=== PATIENT | female | born 2000 | race Caucasian/White ===

== ENCOUNTER → 2018-04-30 | Outpatient (CLI) | payer OTHER ==
[2018-04-30 18:02] LABS: BASO % 0.5 % (0.0-1.0); EOS # 0.5 10^3/uL (0.0-0.50); EOS % 5.8 % (0.0-3.0); HEMATOCRIT 34.5 % (36.0-47.0); HEMOGLOBIN 10.9 g/dl (12.0-15.5); IMMATURE GRANULOCYTE % 0.2 % (0-3.0); LYMPH # 1.6 10^3/uL (1.5-6.5); LYMPH % 18.7 % (24.0-44.0); MEAN CORPUSCULAR HGB CONC 31.6 g/dl (32.0-36.5); MEAN CORPUSCULAR VOLUME 63.3 fl (80.0-96.0); MONO # 0.6 10^3/uL (0.0-0.8); MONO % 6.6 % (0.0-5.0); NEUTROPHILS # 5.7 10^3/uL (1.8-7.7); NEUTROPHILS % 68.2 % (36.0-66.0); PLATELET COUNT, AUTOMATED 343 10^3/uL (150-450); RED BLOOD COUNT 5.45 10^6/uL (4.00-5.40); RED CELL DISTRIBUTION WIDTH 14.9 % (11.5-14.5); WHITE BLOOD COUNT 8.4 10^3/uL (4.0-10.0)
[2018-04-30 20:52] LABS: CHLAMYDIA DNA AMPLIFICATION NEGATIVE (NEGATIVE); GC DNA AMPLIFICATION NEGATIVE (NEGATIVE)
[2018-05-01 12:45] LABS: HBsAg Prenatal NEGATIVE (NEGATIVE); HIV 1&2 SCREEN CENTAUR NEGATIVE (NEGATIVE); RUBELLA IgG QUALITATIVE IMMUNE (IMMUNE)
[2018-05-01 12:45] LABS: HEPATITIS C VIRUS ABY INDEX 0.1 INDEX (<0.8)
== END ==
LOC: M SMT 14:29
DX: Z36.89 Encounter for other specified antenatal screening (principal)
CPT/HCPCS: 86762

== ENCOUNTER → 2018-05-27 | Outpatient (REF) | payer OTHER | LOC: M LAB REF 16:58 | PROVIDERS: ATTEND Obstetrics & Gynecology | DX: Z34.01 Encounter for supervision of normal first pregnancy, first trimester (principal); Z3A.00 Weeks of gestation of pregnancy not specified ==

== ENCOUNTER → 2018-06-26 | Outpatient (CLI) | payer OTHER ==
--- NOTE | 2018-06-26 12:50 | REP ---
OB ULTRASOUND: Real-time sonographic evaluation of the gravid uterus was performed. There is a single living intrauterine gestation. Estimated gestational age is 18 weeks 4 days based on today's ultrasound measurements, EDC 11/23/2018. Biometry and Growth: BPD 43 mm = 19 weeks 0 days HC 156 mm = 18 weeks 3 days AC 132 mm = 18 weeks 5 days FL 29 mm = 18 weeks 5 days HC/AC ratio 1.17 within normal range. Estimated weight 254 grams at the 50th percentile. SEEN/GROSSLY UNREMARKABLE Lateral ventricles Yes Posterior fossa Yes Upper lip Yes Four-chamber heart Echogenic focus in the left ventricle likely related to chordae tendineae LVOT No RVOT No Stomach Yes Cord insertion Yes Three vessel cord Yes Kidneys Yes Bladder Yes Spine No Cervical length: Closed and measures 5.3 cm in length. heart rate: 163 beats per minute. position: Breech Placenta: Anterior and grade 1 with no previa or abruption. Amniotic fluid: Within normal limits. Electronically Signed by Gab Harper MD 06/26/2018 01:44 P
== END ==
LOC: M SMT 09:51
PROVIDERS: ATTEND Obstetrics & Gynecology
DX: Z34.82 Encounter for supervision of other normal pregnancy, second trimester (principal); Z3A.18 18 weeks gestation of pregnancy

== ENCOUNTER → 2018-07-22 | Outpatient (CLI) | payer OTHER | LOC: M SMT 14:58 | PROVIDERS: ATTEND Obstetrics & Gynecology | DX: Z36.89 Encounter for other specified antenatal screening (principal) ==

== ENCOUNTER → 2018-08-14 | Outpatient (CLI) | payer OTHER ==
--- NOTE | 2018-08-14 12:22 | REP ---
Obstetric sonography: History: Supervision of for anatomy. Follow-up outflow tract views and spine. Findings: Scanning through the gravid uterus demonstrates a viable single intrauterine gestation in a breech lie. motion is observed and heart rate is recorded at 150 beats per minute. An anterior grade 1 placenta is seen without evidence of previa or abruption. Amniotic fluid is subjectively normal. Closed cervical length measures 5.6 cm, viewed transabdominally. No extrauterine abnormality is observed. There has been appropriate interval growth. No anomaly is seen. There is an echogenic focus in the left ventricle, likely chordae tendineae. The following anatomic structures are identified and felt to be sonographically unremarkable: cranium, choroid plexus, cavum, cerebellum and posterior fossa, lungs, four-chamber heart with left and right ventricular outflow tract views, diaphragm, left-sided stomach, abdominal wall cord insertion, three-vessel cord, kidneys and bladder, spine, upper and lower extremities. Biometry chart: BPD 6.4 cm 25 weeks 5 days Head circumference 23.9 cm 26 weeks 0 days Abdominal circumference 21.2 cm 25 weeks 5 days Femur length 4.7 cm 25 weeks 5 days Humeral length 4.4 cm 26 weeks 0 days Cerebellar diameter 2.9 cm 25 weeks 2 days HC/AC ratio normal 1.13. Cephalic index normal 0.73. Estimated weight 848 grams, 1 pound 13 ounces, 46 percentile for 25 weeks 4 days. Impression: Viable single intrauterine gestation at 25 weeks 3 days by today's composite criteria. Expected gestational age estimate based on prior sonography is 25 weeks 4 days. BILL by prior sonography November 23, 2018. Appropriate interval growth. Echogenic focus seen in the left ventricle. Otherwise, and in combination with the prior study, anatomic survey is felt to be complete. Electronically Signed by Jeremy Wooten MD 08/14/2018 02:37 P
== END ==
LOC: M SMT 09:43
PROVIDERS: ATTEND Advanced Practice Midwife
DX: Z36.3 Encounter for antenatal screening for malformations (principal); Z3A.25 25 weeks gestation of pregnancy

== ENCOUNTER 2018-10-04 12:50 | Outpatient (CLI) | payer OTHER ==
[~2018-10-04] VITALS: Ht 170.2 cm; Wt 92.6 kg
[2018-10-04 13:04] VITALS: BP 129/70
[2018-10-04] MEDS ORDERED: PRENTAB9 PO (13:16)
== END 2018-10-04 13:42 | disposition home or self-care (01) ==
LOC: M LDO 12:50
PROVIDERS: ATTEND Specialist
DX: O47.03 False labor before 37 completed weeks of gestation, third trimester (principal); Z3A.32 32 weeks gestation of pregnancy

== ENCOUNTER → 2018-11-03 | Outpatient (REF) | payer OTHER ==
[~2018-11-03] MED LIST: PRENTAB9 PO
== END ==
LOC: M LAB REF 17:47
PROVIDERS: ATTEND Specialist
DX: Z34.83 Encounter for supervision of other normal pregnancy, third trimester (principal); Z3A.36 36 weeks gestation of pregnancy

== ENCOUNTER 2018-11-30 18:09 | Inpatient (IN) | payer OTHER ==
[~2018-11-30] VITALS: Ht 170.2 cm; Wt 100.4 kg
[2018-11-30 18:24] VITALS: BP 134/68
[2018-11-30 18:55] VITALS: BP 131/69
[2018-11-30 20:02] VITALS: BP 118/59
[2018-11-30 22:48] LABS: HEMATOCRIT 30.6 % (36.0-47.0); HEMOGLOBIN 9.8 g/dl (12.0-15.5); MEAN CORPUSCULAR HEMOGLOBIN 21.9 pg (27.0-33.0); MEAN CORPUSCULAR VOLUME 68.3 fl (80.0-96.0); PLATELET COUNT, AUTOMATED 240 10^3/uL (150-450); RED BLOOD COUNT 4.48 10^6/uL (4.00-5.40); WHITE BLOOD COUNT 9.3 10^3/uL (4.0-10.0)
[2018-11-30 23:27] VITALS: BP 108/59
[2018-11-30] MEDS ORDERED: LR 1,000 ML IV SCH (23:33)
[2018-11-30] MEDS ORDERED: OXYTOCIN DRIP 30 UNITS in APPROPRIATE DILUENT 1 EA IV SCH (23:45)
[2018-12-01] VITALS (43 sets, daily range): BP systolic 93–162; BP diastolic 51–98
--- NOTE | 2018-12-01 06:06 | HPE ---
DATE OF ADMISSION: 11/30/2018 HISTORY OF PRESENT ILLNESS (HPI): The patient is a 18-year-old female who is 1, para 0 at 40 weeks-3 days gestation with an estimated date of confinement (EDC) of 11/27/2018 based on her last menstrual period (LMP) and consistent with her first trimester ultrasound. She initiated care in her first trimester with [facility]. Her has been complicated by anemia, bipolar. She presents to labor and delivery today with complaints of contractions every four minutes for the last four hours. She reports active movement. She denies vaginal bleeding or leaking of fluid. ALLERGIES: OXYCODONE. CURRENT MEDICATIONS: - vitamins LABS: Blood type A+, her antibody screen is negative. Hemoglobin and hematocrit in the first trimester were 10.9 and 34.5, platelets 343. She was immune to Rubella, nonreactive to VDRL. She had a positive urine culture with Escherichia (E) coli in the first trimester and was treated and negative culture on 05/27/2018. HIV is negative. Hepatitis B surface antigen is negative. HEP C is nonreactive. Gonorrhea and chlamydia are both negative. She declined the genetic testing. Cystic fibrosis, she is not a carried. GBS is negative. The patient did not do her one hour Glucola test. PAST MEDICAL HISTORY: Bipolar. PAST SURGICAL HISTORY: Tonsillectomy. FAMILY HISTORY: Diabetes, depression, stroke, psychiatric disorders. SOCIAL HISTORY: The patient has a history of being a cigarette smoker prior to . She reports she is no longer a smoker. 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 She denies using any alcohol currently. The patient denies any history of illicit recreational drug use now or prior to . PHYSICAL EXAMINATION: VITAL SIGNS: Blood pressure 118/59, heart rate 55, respiratory rate 18, temperature 97.9. heart rate is 140, moderates variability, positive accelerations, no decelerations. Contractions every 2-5 minutes. SVE on initial exam was 1 cm dilated, 75% effaced and fetus was ballotable but no show. After the patient walked and was reevaluated a few hours later she was 1 cm dilated and 90% effaced and minus 2 station with scant show. PHYSICAL EXAMINATION: GENERAL: Alert and oriented times three. RESPIRATORY: Regular rate with no use of accessory muscles. ABDOMEN: Gravid. Nontender to touch. Cephalic presentation noted via vaginal exam and by Isiah. LOWER EXTREMITIES: Generalized edema with no pitting. No clonus. ASSESSMENT: Intrauterine (IUP) at 40.3 weeks gestation, category 1 heart tyracing. early active labor, Group B streptococcus (GBS) negative. PLAN: Admit patient to labor and delivery. Out of bed ad darnell. Clear liquid diet. Saline lock and labs per unit protocol. Anesthesia consult per patient's request. Anticipate cervical change and spontaneous vaginal delivery. Consider IV Pitocin for augmentation.
[2018-12-01] MEDS: miSOPROStol 50 MCG 1/2 TAB (S0191) SL SCH ×3 (08:45→17:32)
[2018-12-01] MEDS ORDERED: OXYTOCIN 30 UNITS IN 0.9% NaCl 500ML IV BAG (J2590) As Ordered ONE (19:15)
[2018-12-01] MEDS ORDERED: LR 1,000 ML IV SCH (20:23)
[2018-12-01] MEDS ORDERED: OXYTOCIN DRIP 30 UNITS in APPROPRIATE DILUENT 1 EA IV SCH (20:30)
[2018-12-01] MEDS ORDERED: FENTANYL 2MCG/ML ROPIVACAINE 0.2% IN 0.9% NACL 100ML IVBAG As Ordered ONE (22:22)
[2018-12-01] MEDS ORDERED: ePHEDrine SULFATE 25 MG/5 ML(5MG/ML) SYRINGE IV PRN (23:45)
[2018-12-01] MEDS ORDERED: ONDANSETRON 4MG/2ML VIAL (J2405) IV PRN (23:45)
[2018-12-01] MEDS ORDERED: REFRIGERATOR IV KEYS XX PRN (23:45)
[2018-12-01] MEDS ORDERED: LACTATED RINGER'S 1000 ML IV PRN (23:45)
[2018-12-01] MEDS ORDERED: EPIDURAL/PCA KEYS XX PRN (23:45)
[2018-12-01] MEDS ORDERED: FENTANYL/ROPIVACAINE/NACL BAG 100 ML EPIDURAL SCH (23:45)
[2018-12-01] MEDS ORDERED: NALOXONE INJ 0.4 MG/1 ML VIAL (J2310) IV PRN (23:45)
[2018-12-01] MEDS ORDERED: EPIDURAL COMMENT XX SCH (23:45)
[2018-12-01] MEDS ORDERED: diphenhydrAMINE INJ 50MG/ML VIAL (J1200) IV PRN (23:45)
[2018-12-02] VITALS (15 sets, daily range): BP systolic 108–141; BP diastolic 54–84
[2018-12-02] MEDS ORDERED: OXYTOCIN DRIP 30 UNITS in APPROPRIATE DILUENT 1 EA IV ONE (02:45)
[2018-12-02] MEDS ORDERED: DOCUSATE SODIUM 100 MG CAP PO PRN (02:45)
[2018-12-02] MEDS ORDERED: MEASLES,MUMPS,RUBELLA VACCINE INJ (MMR-II) (90707) SC SCH (02:45)
[2018-12-02] MEDS ORDERED: METHYLERGONOVINE MALEATE 0.2 MG TAB PO PRN (02:45)
[2018-12-02] MEDS ORDERED: LIDOCAINE 1% MDV 20ML VIAL INFIL ONE (02:45)
[2018-12-02] MEDS ORDERED: RHOGAM 300 MCG (1500 IU) INJ (J2790) IM SCH (02:45)
[2018-12-02] MEDS ORDERED: ACETAMINOPHEN TAB 650MG DOSE (2X325MG) PO PRN (02:45)
[2018-12-02] MEDS ORDERED: ONDANSETRON 4MG/2ML VIAL (J2405) IV PRN (02:45)
[2018-12-02] MEDS ORDERED: ACETAMINOPHEN 500 MG TAB PO PRN (02:45)
[2018-12-02] MEDS ORDERED: DIBUCAINE 1% OINTMENT 30GM TOP PRN (02:45)
--- NOTE | 2018-12-02 03:57 | DN ---
DATE: 12/02/2018 PREOPERATIVE DIAGNOSIS: 40 weeks gestation, early labor. POSTOPERATIVE DIAGNOSIS: Delivered. PROCEDURES: Spontaneous vaginal delivery. POOL ATTENDANT: Kael Mendez MD ANESTHESIA: Epidural. ESTIMATED BLOOD LOSS: 300 mL. FINDINGS: 8 pound, 4 ounce male infant, score 8 and 8. DELIVERY SUMMARY: After 15 minutes second stage, the patient had spontaneous delivery of an 8 pound, 4 ounce male infant with score 8 and 8 under epidural anesthesia. There was no nuchal cord. The shoulders delivered with ease. The infant was handed to the mother and cried quickly. The cord was delivered and clamped and cut. The placenta was delivered spontaneously and appeared to be intact. The patient received IV Pitocin immediately after delivery of the placenta. A second degree perineal laceration was repaired with 2-0 chromic under local anesthesia in the usual fashion. Sponge and needle counts were correct.
[2018-12-02] MEDS: PRENATAL VITAMINS CHEWABLE TABLET PO SCH (08:14)
[2018-12-02] MEDS: IBUPROFEN 800 MG TAB PO PRN ×2 (08:14→16:34)
[2018-12-03 05:42] VITALS: BP 111/72
[2018-12-03] MEDS ORDERED: ADACEL/BOOSTRIX VACCINE (DIPHTH/PERTUSS/ACELL/TETANUS)0.5ML SYR (90715) IM ONE (09:00)
[2018-12-03] MEDS: PRENATAL VITAMINS CHEWABLE TABLET PO SCH (09:03)
[2018-12-03] MEDS: IBUPROFEN 600 MG TAB PO PRN ×2 (09:04→16:49)
[2018-12-03 17:56] VITALS: BP 115/78
[2018-12-04 06:00] VITALS: BP 121/62
[2018-12-04] MEDS: PRENATAL VITAMINS CHEWABLE TABLET PO SCH (07:55)
== END 2018-12-04 12:20 | disposition home or self-care (01) | DRG 560 ==
LOC: M LDO 18:09 → M LDI 21:10 → M OBS 12-02 04:09
PROVIDERS: ADMIT Advanced Practice Midwife; ATTEND Specialist
PROC: 10E0XZZ Delivery of Products of Conception, External Approach (ICD-10-PCS; principal; 2018-12-02)
PROC: 0KQM0ZZ Repair Perineum Muscle, Open Approach (ICD-10-PCS; 2018-12-02)
DX: O70.1 Second degree perineal laceration during delivery (principal); Z37.0 Single live birth; Z3A.40 40 weeks gestation of pregnancy